=== PATIENT | female | born 1985 | race Caucasian/White ===

== ENCOUNTER → 2018-12-25 | Outpatient (CLI) | payer OTHER ==
[2018-12-25 16:34] LABS: BASOPHILS ABSOLUTE AUTO 0.02 K/mm3 (0.00-0.23); BASOPHILS PERCENT AUTO 0 % (0-2); EOSINOPHILS ABSOLUTE AUTO 0.14 K/mm3 (0.00-0.68); EOSINOPHILS PERCENT AUTO 1 % (0-6); Hematocrit 43.1 % (33.0-51.0); Hemoglobin 14.5 g/dL (11.5-16.0); IMMATURE GRAN ABSOLUTE AUTO 0.04 K/mm3 (0.00-0.10); IMMATURE GRAN PERCENT AUTO 0 % (0-1); LYMPHOCYTES ABSOLUTE AUTO 2.91 K/mm3 (0.84-5.20); LYMPHOCYTES PERCENT AUTO 24 % (21-46); MONOCYTES ABSOLUTE AUTO 1.01 K/mm3 (0.16-1.47); MONOCYTES PERCENT AUTO 8 % (4-13); Mean Corpuscular HGB 31.7 pg (26.0-34.0); Mean Corpuscular HGB Conc 33.6 g/dL (31.5-36.5); Mean Corpuscular Volume 94 fL (80-100); Mean Platelet Volume 10.8 fL (9.1-12.4); NEUTROPHILS ABSOLUTE AUTO 8.05 K/mm3 (1.96-9.15); NEUTROPHILS PERCENT AUTO 66 % (41-73); Platelet Count 306 K/mm3 (150-400); RDW Coefficient Variation 12.1 % (11.7-14.2); RDW Standard Deviation 42.1 fL (35.1-46.3); Red Blood Cell Count 4.58 M/mm3 (3.80-5.20); White Blood Cell Count 12.17 K/mm3 (4.00-11.30)
[2018-12-25 19:22] LABS: Free Thyroxine 0.76 ng/dL (0.70-1.60)
[2018-12-25 19:23] LABS: Thyroid Stimulating Hormone 1.64 uIU/mL (0.360-4.800); Triiodothyronine, Free 2.65 pg/mL (2.18-3.98)
== END | disposition home or self-care (01) ==
LOC: LAB SHORT 15:26 → LAB 15:26
PROVIDERS: Nurse Practitioner
DX: N91.2 Amenorrhea, unspecified (principal); R10.2 Pelvic and perineal pain; Z86.39 Personal history of other endocrine, nutritional and metabolic disease
CPT/HCPCS: 84439; 84443; 84481; 84702; 84703; 85025

== ENCOUNTER 2019-09-27 08:20 | Day surgery (SDC) | payer OTHER ==
[~2019-09-27] VITALS: Ht 167.6 cm; Wt 74.1 kg
== END 2019-09-27 10:10 | disposition home or self-care (01) ==
LOC: ORSCSDS 08:20
PROVIDERS: Internal Medicine Gastroenterology
PROC: 0DJD8ZZ Inspection of Lower Intestinal Tract, Via Natural or Artificial Opening Endoscopic (ICD-10-PCS; principal; 2019-09-27 09:15)
DX: R19.4 Change in bowel habit (principal); R10.12 Left upper quadrant pain; Z83.71 Family history of colonic polyps; K64.8 Other hemorrhoids
CPT/HCPCS: J0330; J0461; J2405; J2704; J7120

== ENCOUNTER → 2019-12-25 | Outpatient (CLI) | payer OTHER ==
[~2019-12-25] MED LIST: KEFLEX500 MG PO
[2019-12-28 04:11] LABS: CHLAMYDIA TRACHOMATIS, NAA Negative (Negative); NEISSERIA GONORRHOEAE, NAA Negative (Negative)
== END | disposition home or self-care (01) ==
LOC: LAB SHORT 19:07 → LAB 19:07
PROVIDERS: Advanced Practice Midwife
DX: Z11.3 Encounter for screening for infections with a predominantly sexual mode of transmission (principal)
CPT/HCPCS: 87491; 87591

== ENCOUNTER 2020-02-01 18:06 | Emergency (ER) | payer OTHER ==
[~2020-02-01] VITALS: Ht 167.6 cm; Wt 74.4 kg
[2020-02-01] MEDS ORDERED: PRENATAL TABLE1 EAC2 PO (18:25)
[2020-02-01] MEDS ORDERED: CRUTCH4 XX (20:46)
== END 2020-02-01 21:04 | disposition home or self-care (01) ==
LOC: ER 18:06
DX: S83.91XA Sprain of unspecified site of right knee, initial encounter (principal); S83.92XA Sprain of unspecified site of left knee, initial encounter; Z88.2 Allergy status to sulfonamides; Z88.5 Allergy status to narcotic agent; Z79.899 Other long term (current) drug therapy; X50.1XXA Overexertion from prolonged static or awkward postures, initial encounter
CPT/HCPCS: 29515; 73610; 99283-25

== ENCOUNTER → 2020-06-20 | Outpatient (CLI) | payer OTHER ==
[~2020-06-20] MED LIST changes: +CRUTCH4 XX; +PRENATAL TABLE1 EAC2 PO
== END | disposition home or self-care (01) ==
LOC: LAB SHORT 16:57
DX: O09.92 Supervision of high risk pregnancy, unspecified, second trimester (principal)
CPT/HCPCS: 87081; 87150

== ENCOUNTER 2020-07-07 19:31 | Inpatient (IN) | payer OTHER ==
[~2020-07-07] VITALS: Ht 167.6 cm; Wt 88.4 kg
[2020-07-07] MEDS ORDERED: FAMO20 PO (20:05)
[2020-07-07 20:10] LABS: BASOPHILS ABSOLUTE AUTO 0.03 K/mm3 (0.00-0.23); BASOPHILS PERCENT AUTO 0 % (0-2); EOSINOPHILS ABSOLUTE AUTO 0.14 K/mm3 (0.00-0.68); EOSINOPHILS PERCENT AUTO 1 % (0-6); Hematocrit 39.1 % (33.0-51.0); IMMATURE GRAN ABSOLUTE AUTO 0.18 K/mm3 (0.00-0.10); IMMATURE GRAN PERCENT AUTO 1 % (0-1); LYMPHOCYTES ABSOLUTE AUTO 3.87 K/mm3 (0.84-5.20); LYMPHOCYTES PERCENT AUTO 26 % (21-46); MONOCYTES ABSOLUTE AUTO 0.73 K/mm3 (0.16-1.47); MONOCYTES PERCENT AUTO 5 % (4-13); Mean Corpuscular HGB 30.9 pg (26.0-34.0); Mean Corpuscular HGB Conc 33.2 g/dL (31.5-36.5); Mean Corpuscular Volume 93 fL (80-100); Mean Platelet Volume 10.7 fL (9.1-12.4); NEUTROPHILS ABSOLUTE AUTO 10.08 K/mm3 (1.96-9.15); NEUTROPHILS PERCENT AUTO 67 % (41-73); Platelet Count 318 K/mm3 (150-400); RDW Coefficient Variation 12.9 % (11.7-14.2); RDW Standard Deviation 44.3 fL (35.1-46.3); Red Blood Cell Count 4.21 M/mm3 (3.80-5.20); White Blood Cell Count 15.03 K/mm3 (4.00-11.30)
[2020-07-09 06:09] LABS: Hematocrit 31.4 % (33.0-51.0); Hemoglobin 10.3 g/dL (11.5-16.0); Mean Corpuscular HGB 31.2 pg (26.0-34.0); Mean Corpuscular HGB Conc 32.8 g/dL (31.5-36.5); Mean Corpuscular Volume 95 fL (80-100); Platelet Count 281 K/mm3 (150-400); RDW Standard Deviation 45.3 fL (35.1-46.3); White Blood Cell Count 16.33 K/mm3 (4.00-11.30)
[2020-07-09] MEDS ORDERED: IBUP800 PO (12:38)
== END 2020-07-09 15:37 | disposition home or self-care (01) | DRG 807 ==
LOC: OBS 19:31 → BC 19:32 → OBS 19:38 → BC 19:39
PROVIDERS: ADMIT Advanced Practice Midwife
PROC: 3E0P7VZ Introduction of Hormone into Female Reproductive, Via Natural or Artificial Opening (ICD-10-PCS; 2020-07-07)
PROC: 10E0XZZ Delivery of Products of Conception, External Approach (ICD-10-PCS; principal; 2020-07-08)
PROC: 0HQ9XZZ Repair Perineum Skin, External Approach (ICD-10-PCS; 2020-07-08)
PROC: 10907ZC Drainage of Amniotic Fluid, Therapeutic from Products of Conception, Via Natural or Artificial Opening (ICD-10-PCS; 2020-07-08)
PROC: 3E0R3BZ Introduction of Anesthetic Agent into Spinal Canal, Percutaneous Approach (ICD-10-PCS; 2020-07-08)
PROC: 00HU33Z Insertion of Infusion Device into Spinal Canal, Percutaneous Approach (ICD-10-PCS; 2020-07-08)
DX: O69.81X0 Labor and delivery complicated by cord around neck, without compression, not applicable or unspecified (principal); Z37.0 Single live birth; O99.02 Anemia complicating childbirth; D64.9 Anemia, unspecified; Z3A.39 39 weeks gestation of pregnancy; O70.0 First degree perineal laceration during delivery; O32.6XX0 Maternal care for compound presentation, not applicable or unspecified; Z20.822 Contact with and (suspected) exposure to COVID-19; Z88.2 Allergy status to sulfonamides
CPT/HCPCS: 36415; 51702; 85025; 85027; 86850; 86900; 86901; A9270; J1885; J2001; J2210; J2405; J2590; J3010; J7120

== ENCOUNTER → 2021-04-20 | Outpatient (CLI) | payer OTHER ==
[~2021-04-20] MED LIST changes: +FAMO20 PO; +IBUP800 PO
[2021-04-20 10:22] LABS: BASOPHILS ABSOLUTE AUTO 0.02 K/mm3 (0.00-0.23); BASOPHILS PERCENT AUTO 0 % (0-2); EOSINOPHILS ABSOLUTE AUTO 0.21 K/mm3 (0.00-0.68); EOSINOPHILS PERCENT AUTO 2 % (0-6); Hematocrit 41.9 % (33.0-51.0); IMMATURE GRAN ABSOLUTE AUTO 0.02 K/mm3 (0.00-0.10); IMMATURE GRAN PERCENT AUTO 0 % (0-1); LYMPHOCYTES PERCENT AUTO 41 % (21-46); MONOCYTES ABSOLUTE AUTO 0.61 K/mm3 (0.16-1.47); MONOCYTES PERCENT AUTO 7 % (4-13); Mean Corpuscular HGB 30.9 pg (26.0-34.0); Mean Corpuscular HGB Conc 33.4 g/dL (31.5-36.5); Mean Corpuscular Volume 93 fL (80-100); Mean Platelet Volume 9.9 fL (9.1-12.4); NEUTROPHILS ABSOLUTE AUTO 4.38 K/mm3 (1.96-9.15); NEUTROPHILS PERCENT AUTO 50 % (41-73); Platelet Count 299 K/mm3 (150-400); RDW Coefficient Variation 12.4 % (11.7-14.2); RDW Standard Deviation 41.9 fL (35.1-46.3); Red Blood Cell Count 4.53 M/mm3 (3.80-5.20); White Blood Cell Count 8.84 K/mm3 (4.00-11.30)
[2021-04-20 10:50] LABS: Alanine Aminotransfer (ALT/SGP 30 U/L (12-78); Albumin, Blood 4.4 g/dL (3.4-5.0); Albumin/Globulin Ratio 1.3 (0.8-1.8); Alk Phos 62 U/L (50-136); Anion Gap 6 mmol/L (6-16); Aspartate Aminotrans (AST/SGOT 15 U/L (12-37); Bilirubin, Total 0.4 mg/dL (0.1-1.0); Blood Urea Nitrogen 10 mg/dL (8-24); Bun/Creatinine Ratio 12.2 (12.0-20.0); CO2, Blood 29 mmol/L (21-32); Calcium, Blood 9.4 mg/dL (8.5-10.1); Chloride, Blood 105 mmol/L (98-108); Creatinine, Blood 0.82 mg/dL (0.40-1.00); Globulin, Blood 3.3 g/dL (2.2-4.0); Glomerular Filtration Rate >60 (60-); Glucose, Blood 105 mg/dL (70-99); Potassium, Blood 4.8 mmol/L (3.5-5.5); Sodium, Blood 140 mmol/L (136-145); Total Protein, Blood 7.7 g/dL (6.4-8.2)
== END ==
LOC: LAB SHORT 10:18
PROVIDERS: General Practice
DX: R07.9 Chest pain, unspecified (principal)
CPT/HCPCS: 80053; 85025; 85379

== ENCOUNTER 2022-06-17 18:54 | Emergency (ER) | payer OTHER ==
[~2022-06-17] VITALS: Ht 167.6 cm; Wt 77.1 kg
== END 2022-06-17 19:44 | disposition home or self-care (01) ==
LOC: ER 18:54
DX: J34.89 Other specified disorders of nose and nasal sinuses (principal); Z88.2 Allergy status to sulfonamides; Z88.5 Allergy status to narcotic agent; W22.8XXA Striking against or struck by other objects, initial encounter
CPT/HCPCS: 96372; 99282-25